=== PATIENT | male | born 1945 | race Caucasian/White ===

== ENCOUNTER 2023-10-22 14:10 | Inpatient (IN) | payer MEDICARE, BC ==
[~2023-10-22] VITALS: Ht 172.7 cm; Wt 67.8 kg
[2023-10-22] MEDS ORDERED: AMLODIPINE BESY10 MG PO (15:07)
[2023-10-22] MEDS ORDERED: CETIRIZINE10 MG PO (15:09)
[2023-10-22] MEDS ORDERED: VITAMIN B-121000 MC3 SL (15:10)
[2023-10-22] MEDS ORDERED: DIVALPROEX SOD250 MG PO (15:14)
[2023-10-22] MEDS ORDERED: STOOL SOFTENER100 MG PO (15:15)
[2023-10-22] MEDS ORDERED: FEXOFENADINE H180 M1 PO (15:16)
[2023-10-22] MEDS ORDERED: LISINOPRIL40 MG PO (16:10)
[2023-10-22] MEDS ORDERED: LORAZEPAM0.5 M1 PO (16:12)
[2023-10-22] MEDS ORDERED: MELATONIN10 M4 PO (16:13)
[2023-10-22] MEDS ORDERED: MEMANTINE HCL10 MG PO (16:14)
[2023-10-22] MEDS ORDERED: QUETIAPINE FUMA25 MG PO (16:15)
[2023-10-22] MEDS ORDERED: SENOKOT8.7 MG PO (16:16)
[2023-10-22] MEDS ORDERED: TRAZODONE50 MG PO (16:17)
[2023-10-22 17:08] VITALS: BP 141/70
[2023-10-22] MEDS ORDERED: B121000 MCG/1 IM (17:41)
[2023-10-22] MEDS ORDERED: VITAMIN B-121000 MC2 PO (17:42)
[2023-10-22] MEDS ORDERED: ARICEPT10 M1 PO (17:42)
[2023-10-22] MEDS ORDERED: FLONASE ALLERG9.9 ML NAS (17:43)
[2023-10-22] MEDS ORDERED: LEVSIN0.125 M2 PO (17:44)
[2023-10-22] MEDS ORDERED: LORazepam 1 MG TAB PO PRN (17:45)
[2023-10-22] MEDS ORDERED: Ziprasidone Mesylate 20 MG VIAL IM PRN (17:45)
[2023-10-22] MEDS ORDERED: MG-AL HYDROXIDE/SIMETICONE 30 ML UDC PO PRN (17:55)
[2023-10-22] MEDS ORDERED: Magnesium Hydroxide 30 ML UDC PO PRN (17:55)
[2023-10-22] MEDS ORDERED: ACETAMINOPHEN 325 MG TAB PO PRN (17:55)
[2023-10-22 20:00] VITALS: BP 134/68
[2023-10-22] MEDS ORDERED: Memantine Hydrochloride 10 MG TAB PO SCH (21:00)
[2023-10-22] MEDS ORDERED: LORazepam 0.5 MG TAB PO SCH (21:00)
[2023-10-22] MEDS ORDERED: Mirtazapine 15 MG TAB PO SCH (21:00)
[2023-10-22] MEDS ORDERED: RISPERIDONE 0.5 MG TAB PO SCH (21:00)
[2023-10-23 07:15] LABS: ALKALINE PHOSPHATASE 63 U/L (46-116); BUN 24 mg/dl (9-23); CHLORIDE 107 mmol/L (98-107); CHOLESTEROL 160 mg/dL (<200); LDL CHOLESTEROL 94 mg/dL (9-159); POTASSIUM 3.4 mmol/L (3.4-5.1); SGPT/ALT 24 U/L (5-49); TOTAL PROTEIN 6.7 gm/dL (6.0-8.0); TRIGLYCERIDES 57 mg/dl (<150)
[2023-10-23 07:51] LABS: VITAMIN D, 25-HYDROXY 41.1 ng/mL (30-100)
[2023-10-23 08:00] VITALS: BP 144/68
[2023-10-23] MEDS ORDERED: Rivastigmine Tartrate 4.6 MG/24 HR PATCH T SCH (09:00)
[2023-10-23] MEDS ORDERED: hydrOXYzine pamoate 25 MG CAP PO PRN (11:00)
[2023-10-23] MEDS ORDERED: DOCUSATE SODIUM 100 MG CAP PO PRN (13:40)
[2023-10-23] MEDS ORDERED: Cetirizine Hydrochloride 10 MG TAB PO PRN (13:40)
[2023-10-23] MEDS ORDERED: HYOSCYAMINE SULFATE 0.125 MG TAB PO PRN (13:45)
[2023-10-23 20:00] VITALS: BP 147/70
[2023-10-24 07:13] LABS: BASO % 0.6 % (0.0-1.0); EOS # 0.1 10*3/uL (0.0-0.4); EOS % 1.9 % (1.0-4.0); HEMATOCRIT 40.4 % (42.0-52.0); LYMPH # 1.8 10*3/uL (1.3-4.4); MEAN CELL VOLUME 92.7 fl (80.0-94.0); MEAN CORPUSCULAR HGB 29.8 pg (27.0-31.0); MEAN CORPUSCULAR HGB CONC 32.2 g/dl (33.0-37.0); MEAN PLATELET VOLUME 11.1 fl (9.6-12.3); MONO % 13.7 % (3.0-9.0); NEUT % 57.7 % (47.0-73.0); PLATELET COUNT AUTOMATED 243 10*3/uL (130-400); RED BLOOD COUNT 4.36 10*6/uL (4.50-5.90)
[2023-10-24 07:33] VITALS: BP 132/63
[2023-10-24] MEDS ORDERED: amLODIPine besylate 5 MG TAB PO SCH (09:00)
[2023-10-24] MEDS ORDERED: Cetirizine Hydrochloride 10 MG TAB PO SCH (09:00)
[2023-10-24] MEDS ORDERED: LISINOPRIL 40 MG TAB PO SCH (09:00)
[2023-10-24] MEDS ORDERED: FLUTICASONE PROPIONATE Nasal 16 Gm spray NAS SCH (09:00)
[2023-10-24 20:00] VITALS: BP 152/73
[2023-10-25 07:41] VITALS: BP 120/65
[2023-10-25 20:00] VITALS: BP 157/70
[2023-10-26] MEDS ORDERED: GUAIFENESIN 600 MG TAB ER PO SCH (03:55)
[2023-10-26 08:08] VITALS: BP 127/64
[2023-10-26] MEDS ORDERED: Rivastigmine Tartrate 9.5 MG/24 HR PATCH T SCH (09:00)
[2023-10-26] MEDS ORDERED: DIVALPROEX (DR) 250 MG TAB PO SCH (13:00)
[2023-10-26 20:00] VITALS: BP 147/85
[2023-10-26] MEDS ORDERED: Water, Sterile 10 ML VIAL ONE (20:50)
[2023-10-27 07:28] VITALS: BP 110/83
[2023-10-27] MEDS ORDERED: RISPERIDONE 0.5 MG TAB PO SCH (13:00)
[2023-10-27] MEDS ORDERED: Water, Sterile 10 ML VIAL ONE ×2 (13:04→23:41)
[2023-10-27 20:00] VITALS: BP 133/73
[2023-10-28 08:00] VITALS: BP 125/58
[2023-10-28] MEDS ORDERED: RIVASTIGMINE 13.3 MG/24 HR TDM T SCH (09:00)
[2023-10-28] MEDS ORDERED: Ziprasidone Hydrochloride 60 MG CAP PO SCH (17:00)
[2023-10-28 20:00] VITALS: BP 125/581
[2023-10-29 07:34] VITALS: BP 126/64
[2023-10-29 20:00] VITALS: BP 139/72
[2023-10-30 08:00] VITALS: BP 134/77; BP 146/64
[2023-10-30 20:00] VITALS: BP 126/56
[2023-10-31 07:49] VITALS: BP 107/53
[2023-10-31 20:00] VITALS: BP 147/62
[2023-11-01 07:49] VITALS: BP 113/56
[2023-11-01 20:00] VITALS: BP 111/53
[2023-11-02 07:49] VITALS: BP 134/62
[2023-11-02 20:00] VITALS: BP 164/68
[2023-11-03 07:47] VITALS: BP 138/90
[2023-11-03 20:00] VITALS: BP 115/47
[2023-11-04 08:00] VITALS: BP 121/52
[2023-11-04] MEDS ORDERED: RIVASTIGMINE1 EAC2 T (10:13)
[2023-11-04] MEDS ORDERED: ZIPRASIDONE HCL60 M1 PO (10:13)
[2023-11-04] MEDS ORDERED: MEMANTINE HCL10 MG PO (10:13)
== END 2023-11-04 14:34 | DRG 883 ==
LOC: 3N 14:10
PROVIDERS: Student in an Organized Health Care Education/Training Program; ADMIT Psychiatry & Neurology Psychiatry; ATTEND Psychiatry & Neurology Psychiatry
PROC: GZHZZZZ Group Psychotherapy (ICD-10-PCS; principal; 2023-10-23)
PROC: GZ51ZZZ Individual Psychotherapy, Behavioral (ICD-10-PCS; 2023-10-23)
DX: F63.81 Intermittent explosive disorder (principal); G30.9 Alzheimer's disease, unspecified; F02.80 Dementia in other diseases classified elsewhere, unspecified severity, without behavioral disturbance, psychotic disturbance, mood disturbance, and anxiety; G31.83 Neurocognitive disorder with Lewy bodies; I10 Essential (primary) hypertension; F51.01 Primary insomnia; E53.8 Deficiency of other specified B group vitamins; E78.5 Hyperlipidemia, unspecified; D64.9 Anemia, unspecified; Z88.8 Allergy status to other drugs, medicaments and biological substances; Z79.899 Other long term (current) drug therapy

== ENCOUNTER 2024-02-02 09:35 | Emergency (ER) | payer MEDICARE, BC ==
[~2024-02-02] VITALS: Wt 65.8 kg
[~2024-02-02 09:35] MED LIST: AMLODIPINE BESY10 MG PO; ARICEPT10 M1 PO; B121000 MCG/1 IM; CETIRIZINE10 MG PO; DIVALPROEX SOD250 MG PO; FEXOFENADINE H180 M1 PO; FLONASE ALLERG9.9 ML NAS; LEVSIN0.125 M2 PO; LISINOPRIL40 MG PO; LORAZEPAM0.5 M1 PO; MELATONIN10 M4 PO; MEMANTINE HCL10 MG PO; QUETIAPINE FUMA25 MG PO; RIVASTIGMINE1 EAC2 T; SENOKOT8.7 MG PO; STOOL SOFTENER100 MG PO; TRAZODONE50 MG PO; VITAMIN B-121000 MC2 PO; VITAMIN B-121000 MC3 SL; ZIPRASIDONE HCL60 M1 PO
[2024-02-02 10:02] LABS: BASO % 0.3 % (0.0-1.0); EOS # 0.1 10*3/uL (0.0-0.4); EOS % 1.1 % (1.0-4.0); HEMATOCRIT 36.7 % (42.0-52.0); LYMPH # 1.3 10*3/uL (1.3-4.4); LYMPH % 21.5 % (27.0-41.0); MEAN CELL VOLUME 94.1 fl (80.0-94.0); MEAN CORPUSCULAR HGB 31.3 pg (27.0-31.0); MEAN CORPUSCULAR HGB CONC 33.2 g/dl (33.0-37.0); MEAN PLATELET VOLUME 10.4 fl (9.6-12.3); MONO # 0.6 10*3/uL (0.1-1.0); MONO % 9.4 % (3.0-9.0); NEUT # 4.2 10*3/uL (2.3-7.9); NEUT % 67.4 % (47.0-73.0); PLATELET COUNT AUTOMATED 239 10*3/uL (130-400); RED CELL DISTRI WIDTH 11.9 % (0-14.5); WHITE BLOOD COUNT 6.2 10*3/uL (4.8-10.8)
[2024-02-02 10:12] LABS: ACT PARTIAL THROMBO TIME 27.3 SECONDS (20.0-32.1)
[2024-02-02 10:28] LABS: ALKALINE PHOSPHATASE 69 U/L (46-116); BUN 23 mg/dl (9-23); CHLORIDE 108 mmol/L (98-107); CPK 69 U/L (34-171); POTASSIUM 3.1 mmol/L (3.4-5.1); SGPT/ALT 21 U/L (5-49); TOTAL PROTEIN 6.4 gm/dL (6.0-8.0)
[2024-02-02 10:34] LABS: ETHYL ALCOHOL < 3.0 mg/dl (<3)
[2024-02-02 11:51] LABS: URINE AMPHETAMINES Negative (1000ng/ml); URINE BARBITURATES Negative (200ng/ml); URINE BENZODIAZEPINES Negative (200ng/ml); URINE CANNABINOIDS (THC) Negative (50ng/ml); URINE COCAINE Negative (300ng/ml); URINE METHADONE Negative (300ng/ml); URINE OPIATES Negative (300ng/ml); URINE PHENCYCLIDINE Negative (25ng/ml)
[2024-02-02 12:12] LABS: BILIRUBIN Negative (Negative); BLOOD Negative (Negative); CLARITY Clear (Clear); COLOR Yellow (Yellow); GLUCOSE Negative (Negative); KETONE Negative (Negative); LEUKO ESTERASE Negative (Negative); NITRITE Negative (Negative); PH 5.5 (4.5-8.0); SPECIFIC GRAVITY 1.025 (1.001-1.030)
[2024-02-02 12:35] LABS: CALCIUM OXALATE CRYSTALS 2+
[2024-02-02 12:36] LABS: BACTERIA 1+
[2024-02-02] MEDS ORDERED: Midazolam Hydrochloride 5 MG/ML VIAL INH ONE (17:30)
== END 2024-02-02 20:32 ==
LOC: ED 09:35
PROVIDERS: Internal Medicine
DX: F03.918 Unspecified dementia, unspecified severity, with other behavioral disturbance (principal); Z20.822 Contact with and (suspected) exposure to COVID-19; F63.81 Intermittent explosive disorder; Z88.8 Allergy status to other drugs, medicaments and biological substances; Z79.899 Other long term (current) drug therapy

== ENCOUNTER 2024-02-02 20:10 | Inpatient (IN) | payer MEDICARE, BC ==
[~2024-02-02] VITALS: Ht 177.8 cm; Wt 64.5 kg
[2024-02-02 20:35] VITALS: BP 126/64
[2024-02-02] MEDS ORDERED: MG-AL HYDROXIDE/SIMETICONE 30 ML UDC PO PRN (21:05)
[2024-02-02] MEDS ORDERED: Magnesium Hydroxide 30 ML UDC PO PRN (21:05)
[2024-02-02] MEDS ORDERED: ACETAMINOPHEN 325 MG TAB PO PRN (21:05)
[2024-02-02] MEDS ORDERED: Menthol/Zinc Oxide 4 GM THIN T PRN (21:10)
[2024-02-02] MEDS ORDERED: Ziprasidone Mesylate 20 MG VIAL IM PRN (23:40)
[2024-02-02] MEDS ORDERED: Water, Sterile 10 ML VIAL IM PRN (23:40)
[2024-02-02] MEDS ORDERED: LORazepam 2 MG/ML VIAL IM PRN (23:40)
[2024-02-02] MEDS ORDERED: LORazepam 1 MG TAB PO PRN (23:40)
[2024-02-03] MEDS ORDERED: Cetirizine Hydrochloride 10 MG TAB PO PRN (06:05)
[2024-02-03] MEDS ORDERED: DOCUSATE SODIUM 100 MG CAP PO PRN (06:05)
[2024-02-03 06:21] LABS: BASO % 0.5 % (0.0-1.0); EOS # 0.1 10*3/uL (0.0-0.4); HEMATOCRIT 35.1 % (42.0-52.0); LYMPH # 1.5 10*3/uL (1.3-4.4); LYMPH % 22.5 % (27.0-41.0); MEAN CELL VOLUME 93.9 fl (80.0-94.0); MEAN CORPUSCULAR HGB 31.6 pg (27.0-31.0); MEAN CORPUSCULAR HGB CONC 33.6 g/dl (33.0-37.0); MEAN PLATELET VOLUME 10.5 fl (9.6-12.3); MONO # 0.7 10*3/uL (0.1-1.0); NEUT # 4.2 10*3/uL (2.3-7.9); NEUT % 64.7 % (47.0-73.0); PLATELET COUNT AUTOMATED 229 10*3/uL (130-400); RED BLOOD COUNT 3.74 10*6/uL (4.50-5.90); RED CELL DISTRI WIDTH 11.8 % (0-14.5); WHITE BLOOD COUNT 6.5 10*3/uL (4.8-10.8)
[2024-02-03 06:44] LABS: ALKALINE PHOSPHATASE 69 U/L (46-116); BUN 20 mg/dl (9-23); CHLORIDE 108 mmol/L (98-107); CHOLESTEROL 144 mg/dL (<200); LDL CHOLESTEROL 81 mg/dL (9-159); POTASSIUM 3.3 mmol/L (3.4-5.1); SGPT/ALT 20 U/L (5-49); TOTAL PROTEIN 6.2 gm/dL (6.0-8.0); TRIGLYCERIDES 52 mg/dl (<150)
[2024-02-03 07:16] LABS: VITAMIN D, 25-HYDROXY 30.1 ng/mL (30-100)
[2024-02-03 08:00] VITALS: BP 119/51
[2024-02-03] MEDS ORDERED: Ziprasidone Hydrochloride 60 MG CAP PO SCH (08:00)
[2024-02-03] MEDS ORDERED: RIVASTIGMINE 13.3 MG/24 HR TDM T SCH (09:00)
[2024-02-03] MEDS ORDERED: DIVALPROEX SODIUM 125 MG TAB PO SCH (09:00)
[2024-02-03] MEDS ORDERED: LISINOPRIL 40 MG TAB PO SCH (09:00)
[2024-02-03] MEDS ORDERED: amLODIPine besylate 10 MG TAB PO SCH (09:00)
[2024-02-03] MEDS ORDERED: Memantine Hydrochloride 10 MG TAB PO SCH (09:00)
[2024-02-03] MEDS ORDERED: POTASSIUM CHLORIDE 20 MEQ TAB PO ONE (09:05)
[2024-02-03] MEDS ORDERED: BUDESONIDE 0.5 MG AMP NEB SCH (09:15)
[2024-02-03] MEDS ORDERED: FLUTICASONE PROPIONATE 44 MCG INHALER INH SCH (10:00)
[2024-02-03 20:00] VITALS: BP 121/73
[2024-02-03] MEDS ORDERED: BREXPIPRAZOLE 1 MG TABLET PO SCH (21:00)
[2024-02-04 07:31] LABS: BUN 17 mg/dl (9-23); CHLORIDE 105 mmol/L (98-107); POTASSIUM 3.4 mmol/L (3.4-5.1)
[2024-02-04 08:30] VITALS: BP 151/58
[2024-02-04 20:00] VITALS: BP 135/62
[2024-02-05 08:19] VITALS: BP 119/70
[2024-02-05] MEDS ORDERED: Vitamin D 1,000 IU TAB (25 MCG) PO SCH (09:00)
[2024-02-05 20:00] VITALS: BP 181/51
[2024-02-05] MEDS ORDERED: Mirtazapine 15 MG TAB PO SCH (21:00)
[2024-02-06 07:43] VITALS: BP 127/61
[2024-02-06 20:00] VITALS: BP 112/64
[2024-02-07 08:00] VITALS: BP 140/68
[2024-02-07 20:00] VITALS: BP 130/113
[2024-02-07] MEDS ORDERED: Rivastigmine Tartrate 3 MG CAP PO SCH (21:00)
[2024-02-07] MEDS ORDERED: Trihexyphenidyl Hydrochlorid 2 MG TAB PO SCH (21:00)
[2024-02-08 08:20] VITALS: BP 122/51
[2024-02-08] MEDS ORDERED: Trihexyphenidyl Hydrochlorid 2 MG TAB PO SCH (13:00)
[2024-02-08 20:00] VITALS: BP 145/78
[2024-02-09] MEDS ORDERED: hydrOXYzine pamoate 25 MG CAP PO PRN ×2 (07:00)
[2024-02-09 08:08] VITALS: BP 144/100
[2024-02-09 20:00] VITALS: BP 124/64
[2024-02-10 08:00] VITALS: BP 128/95
[2024-02-10] MEDS ORDERED: LORazepam 2 MG/ML VIAL IM PRN (14:10)
[2024-02-10] MEDS ORDERED: LORazepam 1 MG TAB PO PRN (14:10)
[2024-02-10 20:00] VITALS: BP 124/92
[2024-02-11 06:27] LABS: BASO % 0.4 % (0.0-1.0); EOS # 0.1 10*3/uL (0.0-0.4); EOS % 0.8 % (1.0-4.0); HEMATOCRIT 36.3 % (42.0-52.0); LYMPH # 1.8 10*3/uL (1.3-4.4); LYMPH % 18.7 % (27.0-41.0); MEAN CELL VOLUME 94.8 fl (80.0-94.0); MEAN CORPUSCULAR HGB 31.3 pg (27.0-31.0); MEAN CORPUSCULAR HGB CONC 33.1 g/dl (33.0-37.0); MEAN PLATELET VOLUME 10.4 fl (9.6-12.3); MONO # 0.9 10*3/uL (0.1-1.0); NEUT # 6.7 10*3/uL (2.3-7.9); NEUT % 70.7 % (47.0-73.0); PLATELET COUNT AUTOMATED 341 10*3/uL (130-400); RED BLOOD COUNT 3.83 10*6/uL (4.50-5.90); RED CELL DISTRI WIDTH 12.4 % (0-14.5); WHITE BLOOD COUNT 9.5 10*3/uL (4.8-10.8)
[2024-02-11 06:33] LABS: ALKALINE PHOSPHATASE 63 U/L (46-116); BUN 24 mg/dl (9-23); CHLORIDE 102 mmol/L (98-107); SGPT/ALT 12 U/L (5-49); TOTAL PROTEIN 6.7 gm/dL (6.0-8.0)
[2024-02-11 08:00] VITALS: BP 110/70
[2024-02-11 20:00] VITALS: BP 108/84
[2024-02-12 07:50] VITALS: BP 117/67
[2024-02-12] MEDS ORDERED: PENICILLIN G BENZATHINE IM ONE (11:00)
[2024-02-12 19:08] VITALS: BP 111/57
[2024-02-13 09:24] VITALS: BP 113/79
[2024-02-13 20:00] VITALS: BP 125/56
[2024-02-14 07:47] VITALS: BP 111/71
[2024-02-14] MEDS ORDERED: hydrOXYzine pamoate 25 MG CAP PO SCH (13:00)
[2024-02-14 20:00] VITALS: BP 118/75
[2024-02-15 08:00] VITALS: BP 110/74
[2024-02-15 20:00] VITALS: BP 120/65
[2024-02-16 07:18] LABS: BASO % 0.7 % (0.0-1.0); EOS # 0.1 10*3/uL (0.0-0.4); HEMATOCRIT 40.1 % (42.0-52.0); LYMPH # 1.8 10*3/uL (1.3-4.4); LYMPH % 28.8 % (27.0-41.0); MEAN CELL VOLUME 95.5 fl (80.0-94.0); MEAN CORPUSCULAR HGB 31.2 pg (27.0-31.0); MEAN CORPUSCULAR HGB CONC 32.7 g/dl (33.0-37.0); MEAN PLATELET VOLUME 10.1 fl (9.6-12.3); MONO # 0.7 10*3/uL (0.1-1.0); MONO % 10.9 % (3.0-9.0); NEUT # 3.5 10*3/uL (2.3-7.9); NEUT % 57.3 % (47.0-73.0); PLATELET COUNT AUTOMATED 333 10*3/uL (130-400); RED CELL DISTRI WIDTH 12.1 % (0-14.5); WHITE BLOOD COUNT 6.1 10*3/uL (4.8-10.8)
[2024-02-16 08:06] VITALS: BP 106/71
[2024-02-16 08:15] LABS: ALKALINE PHOSPHATASE 67 U/L (46-116); BUN 16 mg/dl (9-23); CHLORIDE 104 mmol/L (98-107); POTASSIUM 4.1 mmol/L (3.4-5.1); SGPT/ALT 28 U/L (5-49); TOTAL PROTEIN 6.8 gm/dL (6.0-8.0)
[2024-02-16 11:34] VITALS: BP 109/55
[2024-02-16 20:00] VITALS: BP 123/68
[2024-02-17 07:37] VITALS: BP 106/60
[2024-02-17] MEDS ORDERED: Vitamin D (1,000 UNI PO (10:24)
[2024-02-17 20:00] VITALS: BP 123/59
[2024-02-18 07:53] VITALS: BP 160/82
[2024-02-18 20:00] VITALS: BP 112/54
[2024-02-19 08:00] VITALS: BP 112/54
[2024-02-19 20:00] VITALS: BP 126/54
[2024-02-20 08:00] VITALS: BP 99/80
[2024-02-20 10:37] VITALS: BP 138/80
[2024-02-20 19:09] VITALS: BP 105/65
[2024-02-21 08:00] VITALS: BP 114/51
[2024-02-21] MEDS ORDERED: MIRTAZAPINE15 M2 PO (09:45)
[2024-02-21] MEDS ORDERED: HYDROXYZINE PAM25 M1 PO (09:45)
[2024-02-21] MEDS ORDERED: RIVASTIGMINE TAR3 M1 PO (09:45)
[2024-02-21] MEDS ORDERED: B121000 MCG/1 IM (09:45)
[2024-02-23] MEDS ORDERED: CYANOCOBALAMIN 1,000 MCG/ML VIAL IM SCH (09:00)
== END 2024-02-21 13:25 | disposition home or self-care (01) | DRG 57 ==
LOC: 3N 20:10
PROVIDERS: Counselor Professional; Internal Medicine; ADMIT Psychiatry & Neurology Psychiatry; ATTEND Psychiatry & Neurology Psychiatry
PROC: GZHZZZZ Group Psychotherapy (ICD-10-PCS; principal; 2024-02-02)
PROC: GZ51ZZZ Individual Psychotherapy, Behavioral (ICD-10-PCS; 2024-02-02)
DX: G30.9 Alzheimer's disease, unspecified (principal); F02.811 Dementia in other diseases classified elsewhere, unspecified severity, with agitation; F63.81 Intermittent explosive disorder; F23 Brief psychotic disorder; F33.9 Major depressive disorder, recurrent, unspecified; D64.9 Anemia, unspecified; E87.6 Hypokalemia; A51.9 Early syphilis, unspecified; I10 Essential (primary) hypertension; E53.8 Deficiency of other specified B group vitamins; F51.04 Psychophysiologic insomnia; K59.04 Chronic idiopathic constipation; E78.2 Mixed hyperlipidemia; F41.1 Generalized anxiety disorder; Z88.8 Allergy status to other drugs, medicaments and biological substances

== ENCOUNTER 2024-02-28 12:34 | Inpatient (IN) | payer MEDICARE, BC ==
[~2024-02-28] VITALS: Ht 177.8 cm; Wt 64.2 kg
[~2024-02-28 12:34] MED LIST changes: +HYDROXYZINE PAM25 M1 PO; +MIRTAZAPINE15 M2 PO; +RIVASTIGMINE TAR3 M1 PO; +Vitamin D (1,000 UNI PO
[2024-02-28 16:37] VITALS: BP 139/81
[2024-02-28] MEDS ORDERED: Magnesium Hydroxide 30 ML UDC PO PRN (16:55)
[2024-02-28] MEDS ORDERED: MG-AL HYDROXIDE/SIMETICONE 30 ML UDC PO PRN (16:55)
[2024-02-28] MEDS ORDERED: ACETAMINOPHEN 325 MG TAB PO PRN (16:55)
[2024-02-28] MEDS ORDERED: LORazepam 2 MG/ML VIAL IM PRN (17:05)
[2024-02-28] MEDS ORDERED: LORazepam 1 MG TAB PO PRN (17:05)
[2024-02-28] MEDS ORDERED: Ziprasidone Mesylate 20 MG VIAL IM PRN (17:05)
[2024-02-28] MEDS ORDERED: Water, Sterile 10 ML VIAL IM PRN (17:15)
[2024-02-28 20:00] VITALS: BP 154/80
[2024-02-28] MEDS ORDERED: Memantine Hydrochloride 10 MG TAB PO SCH (21:00)
[2024-02-28] MEDS ORDERED: Rivastigmine Tartrate 3 MG CAP PO SCH (21:00)
[2024-02-28] MEDS ORDERED: hydrOXYzine pamoate 25 MG CAP PO SCH (21:00)
[2024-02-28] MEDS ORDERED: Mirtazapine 15 MG TAB PO SCH (21:00)
[2024-02-29 07:37] LABS: ALKALINE PHOSPHATASE 72 U/L (46-116); BUN 21 mg/dl (9-23); CHLORIDE 102 mmol/L (98-107); CHOLESTEROL 216 mg/dL (<200); LDL CHOLESTEROL 148 mg/dL (9-159); POTASSIUM 4.3 mmol/L (3.4-5.1); SGPT/ALT 22 U/L (5-49); TOTAL PROTEIN 6.7 gm/dL (6.0-8.0); TRIGLYCERIDES 53 mg/dl (<150)
[2024-02-29 07:52] LABS: VITAMIN D, 25-HYDROXY 29.8 ng/mL (30-100)
[2024-02-29] MEDS ORDERED: Cetirizine Hydrochloride 10 MG TAB PO PRN (07:55)
[2024-02-29] MEDS ORDERED: DOCUSATE SODIUM 100 MG CAP PO PRN (07:55)
[2024-02-29] MEDS ORDERED: FLUTICASONE PROPIONATE 250 mcg INHALER INH PRN (08:00)
[2024-02-29] MEDS ORDERED: HYOSCYAMINE SULFATE 0.125 MG TAB PO PRN (08:00)
[2024-02-29] MEDS ORDERED: Sennosides A and B 8.6 MG TAB PO PRN (08:00)
[2024-02-29] MEDS ORDERED: BUDESONIDE 0.5 MG AMP NEB SCH (08:10)
[2024-02-29 08:33] VITALS: BP 126/62
[2024-02-29] MEDS ORDERED: amLODIPine besylate 10 MG TAB PO SCH (09:00)
[2024-02-29] MEDS ORDERED: LISINOPRIL 40 MG TAB PO SCH (09:00)
[2024-02-29] MEDS ORDERED: CYANOCOBALAMIN 500 MCG TAB PO SCH (09:00)
[2024-02-29] MEDS ORDERED: Vitamin D 1,000 IU TAB (25 MCG) PO SCH (09:00)
[2024-02-29 20:00] VITALS: BP 128/63
[2024-03-01 08:54] VITALS: BP 143/55
[2024-03-01] MEDS ORDERED: Cholecalciferol 2,000 UNIT TABLET (50 MCG) PO SCH (09:00)
[2024-03-01 20:00] VITALS: BP 137/58
[2024-03-02 08:00] VITALS: BP 128/64
[2024-03-02 19:29] VITALS: BP 95/56
[2024-03-02 20:37] VITALS: BP 112/58
[2024-03-03 07:09] VITALS: BP 127/75
[2024-03-03] MEDS ORDERED: VITAMIN D350 MCG PO (10:32)
== END 2024-03-03 13:10 | disposition hospice, home (50) | DRG 883 ==
LOC: 3N
PROVIDERS: ADMIT Psychiatry & Neurology Psychiatry; ATTEND Psychiatry & Neurology Psychiatry
PROC: GZHZZZZ Group Psychotherapy (ICD-10-PCS; principal; 2024-02-28)
PROC: GZ51ZZZ Individual Psychotherapy, Behavioral (ICD-10-PCS; 2024-02-28)
PROC: GZ56ZZZ Individual Psychotherapy, Supportive (ICD-10-PCS; 2024-02-28)
DX: F63.81 Intermittent explosive disorder (principal); G31.83 Neurocognitive disorder with Lewy bodies; E87.6 Hypokalemia; D64.9 Anemia, unspecified; A51.9 Early syphilis, unspecified; F02.80 Dementia in other diseases classified elsewhere, unspecified severity, without behavioral disturbance, psychotic disturbance, mood disturbance, and anxiety; G30.9 Alzheimer's disease, unspecified; A53.0 Latent syphilis, unspecified as early or late; K59.00 Constipation, unspecified; I10 Essential (primary) hypertension; E78.5 Hyperlipidemia, unspecified; G47.00 Insomnia, unspecified; Z88.8 Allergy status to other drugs, medicaments and biological substances

== ENCOUNTER 2024-02-28 14:21 | Emergency (ER) | payer MEDICARE, BC ==
[~2024-02-28] VITALS: Ht 177.8 cm; Wt 63.5 kg
[2024-02-28 14:57] LABS: BASO % 0.5 % (0.0-1.0); EOS # 0.1 10*3/uL (0.0-0.4); EOS % 0.6 % (1.0-4.0); HEMATOCRIT 36.5 % (42.0-52.0); LYMPH # 1.7 10*3/uL (1.3-4.4); LYMPH % 19.2 % (27.0-41.0); MEAN CELL VOLUME 93.1 fl (80.0-94.0); MEAN CORPUSCULAR HGB 31.1 pg (27.0-31.0); MEAN CORPUSCULAR HGB CONC 33.4 g/dl (33.0-37.0); MEAN PLATELET VOLUME 9.7 fl (9.6-12.3); MONO # 0.8 10*3/uL (0.1-1.0); MONO % 9.4 % (3.0-9.0); NEUT # 6.1 10*3/uL (2.3-7.9); NEUT % 70.1 % (47.0-73.0); PLATELET COUNT AUTOMATED 301 10*3/uL (130-400); RED BLOOD COUNT 3.92 10*6/uL (4.50-5.90); RED CELL DISTRI WIDTH 11.9 % (0-14.5); WHITE BLOOD COUNT 8.7 10*3/uL (4.8-10.8)
[2024-02-28 15:19] LABS: BUN 20 mg/dl (9-23); CHLORIDE 103 mmol/L (98-107); ETHYL ALCOHOL < 3.0 mg/dl (<3); POTASSIUM 3.9 mmol/L (3.4-5.1)
== END 2024-02-28 16:33 ==
LOC: ED 14:21
PROVIDERS: Physician Assistant Medical
DX: F03.918 Unspecified dementia, unspecified severity, with other behavioral disturbance (principal); I10 Essential (primary) hypertension; E78.5 Hyperlipidemia, unspecified; Z88.8 Allergy status to other drugs, medicaments and biological substances